=== PATIENT | female | born 1930 | race Caucasian/White ===

== ENCOUNTER → 2016-10-16 | Outpatient (CLI) | payer MEDICARE ==
--- NOTE | 2016-10-16 13:57 | US ---
EXAMINATION TYPE: US venous doppler duplex LE BI DATE OF EXAM: 10/16/2016 1:39 PM COMPARISON: NONE CLINICAL HISTORY: R60.0 EDEMA. Non healing wound on the left, swelling SIDE PERFORMED: Bilateral VESSELS IMAGED: External Iliac Vein (EIV) Common Femoral Vein Deep Femoral Vein Greater Saphenous Vein * Femoral Vein Popliteal Vein Small Saphenous Vein * Proximal Calf Veins (* superficial vessels) Right Leg: Appears negative for DVT Left Leg: Appears negative for DVT No popliteal fossa lesion is seen. IMPRESSION: THIS EXAMINATION IS NEGATIVE FOR DVT IN BOTH LEGS.
--- NOTE | 2016-10-28 10:04 | P.ARTDOP ---
Arterial Doppler LOWER EXTREMITY ARTERIAL DOPPLER: DATE OF SERVICE: 10/16/2016 Reason for study: Decreased pulses and right foot ulcer. Doppler waveforms: Multiphasic bilaterally throughout. Pulse volume recording: Fairly normal configuration. Pressure gradients: Not able to occlude either side. Ankle-brachial indices: Not able to occlude. 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 Flow appears adequate for healing however. Clinical correlation recommended..
== END | disposition home or self-care (01) ==
LOC: EEVIPCON 12:20 → RADUSWWP 12:22
PROVIDERS: ATTEND Family Medicine
DX: R60.0 Localized edema (principal); R09.89 Other specified symptoms and signs involving the circulatory and respiratory systems
CPT/HCPCS: 93923; 93970